=== PATIENT | female | born 1955 | race Caucasian/White ===

== ENCOUNTER 2024-05-20 03:20 | Emergency (ER) | payer MEDICARE ==
[~2024-05-20] VITALS: Ht 160 cm; Wt 87.1 kg
[2024-05-20] MEDS ORDERED: Ondansetron 4 MG SoluTab SL PRN (03:30)
[2024-05-20] MEDS ORDERED: Ondansetron HCl 2 MG / ML 2ML Vial IV PRN (03:30)
[2024-05-20 03:46] LABS: BASOPHILS ABSOLUTE AUTO 0.05 K/mm3 (0.00-0.23); BASOPHILS PERCENT AUTO 0 % (0-2); EOSINOPHILS ABSOLUTE AUTO 0.11 K/mm3 (0.00-0.68); EOSINOPHILS PERCENT AUTO 1 % (0-6); Hematocrit 41.4 % (33.0-51.0); Hemoglobin 14.3 g/dL (11.5-16.0); IMMATURE GRAN ABSOLUTE AUTO 0.05 K/mm3 (0.00-0.10); IMMATURE GRAN PERCENT AUTO 0 % (0-1); LYMPHOCYTES ABSOLUTE AUTO 1.24 K/mm3 (0.84-5.20); LYMPHOCYTES PERCENT AUTO 8 % (21-46); MONOCYTES ABSOLUTE AUTO 1.19 K/mm3 (0.16-1.47); MONOCYTES PERCENT AUTO 8 % (4-13); Mean Corpuscular HGB 30.4 pg (26.0-34.0); Mean Corpuscular HGB Conc 34.5 g/dL (31.5-36.5); Mean Corpuscular Volume 88 fL (80-100); Mean Platelet Volume 10.7 fL (9.1-12.4); NEUTROPHILS ABSOLUTE AUTO 12.66 K/mm3 (1.96-9.15); NEUTROPHILS PERCENT AUTO 83 % (41-73); Platelet Count 320 K/mm3 (150-400); RDW Coefficient Variation 13.1 % (11.7-14.2); RDW Standard Deviation 42.2 fL (35.1-46.3); Red Blood Cell Count 4.71 M/mm3 (3.80-5.20)
[2024-05-20] MEDS ORDERED: Ketorolac Tromethamine 30mg Vial IV ONE (03:55)
[2024-05-20] MEDS ORDERED: NS 1,000 ML IV SCH (03:55)
[2024-05-20] MEDS ORDERED: Dexamethasone Sod Phos 10 MG/ML 1ML VIAL IV ONE (03:55)
[2024-05-20] MEDS ORDERED: Acetaminophen 500 MG Tab PO ONE (03:55)
[2024-05-20] MEDS ORDERED: Sanctura20 MG PO (04:01)
[2024-05-20] MEDS ORDERED: Norvasc5 MG PO (04:02)
[2024-05-20] MEDS ORDERED: MELO7.5 PO (04:03)
[2024-05-20 04:08] LABS: Albumin/Globulin Ratio 1.1 (0.8-1.8); Bilirubin, Total 0.7 mg/dL (0.1-1.0); Bun/Creatinine Ratio 22.5 (12.0-20.0); Calcium, Blood 9.5 mg/dL (8.5-10.1); Creatinine, Blood 0.8 mg/dL (0.40-1.00); Globulin, Blood 3.5 g/dL (2.2-4.0); Potassium, Blood 3.8 mmol/L (3.5-5.5); Total Protein, Blood 7.5 g/dL (6.4-8.2)
[2024-05-20 05:06] LABS: Source, Urine Clean Catch
[2024-05-20 05:26] LABS: Appearance, Urine Hazy (Clear); Bilirubin, Urine Neg (Neg); Blood, Urine 5+ (Neg); Color, Urine Yellow (P-Yellow); Glucose Qualitative, Urine 2+ (Neg); Ketones, Urine 2+ (Neg); Leukocyte Esterase, Urine 1+ (Neg); Nitrite, Urine Pos (Neg); Protein, Urine 1+ (Neg); Urobilinogen, Urine NORM (Normal)
[2024-05-20 05:39] LABS: Bacteria Many /hpf; Red Blood Cells, Urine 0-2 /hpf (0-2); Squamous Epithelial Cells Many /hpf (Few); White Blood Cells, Urine 0-2 /hpf (0-5)
[2024-05-20] MEDS ORDERED: CefTRIAXone Sodium 1,000 MG in NS 100 ML IV ONE (05:55)
[2024-05-20 06:30] VITALS: BP 162/105
[2024-05-20] MEDS ORDERED: OxyCODONE HCL 5 MG TAB PO ONE (07:00)
[2024-05-20] MEDS ORDERED: OXYC5 PO (07:13)
[2024-05-20] MEDS ORDERED: TAMS.4ER PO (07:13)
[2024-05-20 07:23] LABS: Source, Urine Straight Cath
[2024-05-20 07:39] LABS: Appearance, Urine Clear (Clear); Bilirubin, Urine Neg (Neg); Blood, Urine 1+ (Neg); Color, Urine Yellow (P-Yellow); Glucose Qualitative, Urine 4+ (Neg); Ketones, Urine Neg (Neg); Leukocyte Esterase, Urine Neg (Neg); Nitrite, Urine Neg (Neg); Protein, Urine Neg (Neg); Specific Gravity, Urine 1.005 (1.003-1.022); Urobilinogen, Urine NORM (Normal)
[2024-05-20 07:57] LABS: White Blood Cells, Urine 0-2 /hpf (0-5)
[2024-05-20 07:58] LABS: Bacteria Many /hpf; Red Blood Cells, Urine 0-2 /hpf (0-2); Squamous Epithelial Cells Few /hpf (Few)
[2024-05-20] MEDS ORDERED: ONDA4ODT MM (10:46)
== END 2024-05-20 10:01 | disposition home or self-care (01) ==
LOC: ER 03:20
PROVIDERS: Student in an Organized Health Care Education/Training Program
DX: N13.2 Hydronephrosis with renal and ureteral calculous obstruction (principal); Z88.8 Allergy status to other drugs, medicaments and biological substances
CPT/HCPCS: 74176; 80053; 81001; 82947; 83690; 85025; 87077; 87086; 87186; 96361; 96365; 96375; 99284-25; A9270; J0696; J1100; J1885; J2405; J7030; P9612

== ENCOUNTER → 2024-06-09 | Outpatient (CLI) | payer MEDICARE ==
[~2024-06-09] MED LIST: MELO7.5 PO; Norvasc5 MG PO; ONDA4ODT MM; OXYC5 PO; Sanctura20 MG PO; TAMS.4ER PO
== END ==
LOC: LAB 17:23 → LAB SHORT 17:23
DX: N39.0 Urinary tract infection, site not specified (principal); B96.29 Other Escherichia coli [E. coli] as the cause of diseases classified elsewhere; Z16.12 Extended spectrum beta lactamase (ESBL) resistance
CPT/HCPCS: 87086

== ENCOUNTER 2024-07-18 12:34 | Inpatient (IN) | payer MEDICARE ==
[~2024-07-18] VITALS: Ht 157.5 cm; Wt 93.3 kg
[2024-07-18 13:49] LABS: BASOPHILS ABSOLUTE AUTO 0.06 K/mm3 (0.00-0.23); BASOPHILS PERCENT AUTO 1 % (0-2); EOSINOPHILS ABSOLUTE AUTO 0.28 K/mm3 (0.00-0.68); EOSINOPHILS PERCENT AUTO 3 % (0-6); Hematocrit 40.5 % (33.0-51.0); Hemoglobin 13.9 g/dL (11.5-16.0); IMMATURE GRAN ABSOLUTE AUTO 0.02 K/mm3 (0.00-0.10); IMMATURE GRAN PERCENT AUTO 0 % (0-1); LYMPHOCYTES ABSOLUTE AUTO 1.66 K/mm3 (0.84-5.20); LYMPHOCYTES PERCENT AUTO 19 % (21-46); MONOCYTES ABSOLUTE AUTO 0.97 K/mm3 (0.16-1.47); MONOCYTES PERCENT AUTO 11 % (4-13); Mean Corpuscular HGB 30.5 pg (26.0-34.0); Mean Corpuscular HGB Conc 34.3 g/dL (31.5-36.5); Mean Corpuscular Volume 89 fL (80-100); Mean Platelet Volume 10.6 fL (9.1-12.4); NEUTROPHILS ABSOLUTE AUTO 5.65 K/mm3 (1.96-9.15); NEUTROPHILS PERCENT AUTO 66 % (41-73); Platelet Count 282 K/mm3 (150-400); RDW Standard Deviation 42.4 fL (35.1-46.3); Red Blood Cell Count 4.55 M/mm3 (3.80-5.20); White Blood Cell Count 8.64 K/mm3 (4.00-11.30)
[2024-07-18 14:06] LABS: International Normalized Ratio 0.93
[2024-07-18 14:11] LABS: Albumin, Blood 3.7 g/dL (3.4-5.0); Albumin/Globulin Ratio 1.2 (0.8-1.8); Bilirubin, Total 0.9 mg/dL (0.1-1.0); Bun/Creatinine Ratio 27.9 (12.0-20.0); Calcium, Blood 9.1 mg/dL (8.5-10.1); Creatinine, Blood 0.61 mg/dL (0.40-1.00); Globulin, Blood 3.2 g/dL (2.2-4.0); Potassium, Blood 3.5 mmol/L (3.5-5.5); Total Protein, Blood 6.9 g/dL (6.4-8.2)
[2024-07-18] MEDS ORDERED: HYDROmorphone HCl/Pf 1MG SYR IV ONE (16:20)
[2024-07-18] MEDS ORDERED: Labetalol HCL 5 MG/ML 4ML Injection (Single Dose) IV ONE (17:15)
[2024-07-18] MEDS ORDERED: HydrALAZINE HCl 20 MG / ML 1ML Vial IV PRN (17:30)
[2024-07-18] MEDS ORDERED: FLU VACC TS2024-25(6MOS UP)/PF 45 MCG/0.5 ML SYRINGE IM ONE (17:30)
[2024-07-18] MEDS ORDERED: OxyCODONE HCL 5 MG TAB PO PRN (17:35)
[2024-07-18] MEDS ORDERED: AmLODIPine Besylate 5 MG Tab PO SCH (18:00)
[2024-07-18] MEDS ORDERED: Acetaminophen 500 MG Tab PO SCH (18:00)
[2024-07-18] MEDS ORDERED: Lisinopril 20 MG Tab PO SCH (18:00)
[2024-07-18] MEDS ORDERED: GuaiFENesin 600 MG TabCR PO PRN (20:00)
--- NOTE | 2024-07-18 21:10 | NUR ---
NEW ADMIT. PATIENT ADMITTED TO ROOM 309 FROM ER. PATIENT ADMITTED FOR CVA WITH RIGHT SIDED WEAKNESS. PATIENT ARRIVED TO ROOM VIA GURNEY AND 1P TRANSPORT. UPON ARRIVAL PATIENT ABLE TO AMBULATE WITH 1 PERSON ASSIST TO WEAK SIDE AND BACK TO BED. PATIENT ARRIVED TO ROOM WITH 1 PERSONAL BELONGINGS BAG AND HER PURSE. PATIENT SENT HOME HER VALUABLE WITH HER FRIEND. PATIENT ORIENTED TO ROOM AND CALL LIGHT. THIS RN TO ASSUME PATIENT CARE.
[2024-07-18 21:30] VITALS: BP 152/88
[2024-07-18] MEDS ORDERED: ACET500 PO (22:06)
[2024-07-18] MEDS ORDERED: 1/2 NS 250ml250 ML (22:06)
[2024-07-19] VITALS (8 sets, daily range): BP systolic 140–178; BP diastolic 77–102
[2024-07-19] MEDS ORDERED: Acetaminophen 650 MG Supp PR ONE (05:45)
--- NOTE | 2024-07-19 07:54 | NUR ---
SHIFT SUMMARY AT APPROXIMATELY 0500 PATIENT HAD A CHNAGE IN NEUROLOGICAL STATUS AND MUSCULOSKELETAL STATUS. PATIENT SCORING A 9-10 VIA THE NIHSS STROKE SCALE-DR. MART NOTIFIED AND THIS RN ASKED DR. MART TO COME AND SEE PATIENT- ARRIVED TO PATIENTS ROOM AND BASED ON CHANGES TO HER SCORE ORDERED FOR A STAT HEAD CT WO CONTRAST. PATIENT WENT TO IMAGING AND CT COMPLETED THIS MMORNING. DURING EPISODE PATIENT HAD AN INCREASE DIFFICULTY IN FORMING WORDS, FLACCID TO THE RIGHT UPPER EXTREMITY, AND TENSION PAIN T/O BODY. DR. MART ORDERED FOR PATIENT TO AR TYLENOL-WITH IMPROVEMENT TO MUSCLE LIKE SPASMS. PATIENT IS A&OX4 AT BASELINE BUT AT THE TIME OF EPISODE PATIENTS MENTATION DECREASED AND WAS SLOW TO RESPOND AND UNABLE TO ANSWER ALL QUESTIONS. PATIENT HAS PUREWICK IN PLACE AT THIS TIME-URINE IS LIGHT YELLOW IN COLOR. PATIENT REQUESTING FOOD AND DRINK-SPEECH THERAPY IS SCHEDULED TO EVALUATE PATIENT THIS MORNING (07/19/24). PATIENT SYMPTOMS AT THIS TIME HAS APPEARED TO IMPROVE-PATIENT ABLE TO MOVE DIGITS TO RIGHT HAND AND SPEECH IS IMPROVED. PATIENT IS TALKATIVE. BED IS LOCKED IN THE LOWEST POSITION WITH CALL LIGHT IN REACH. REPORT GIVEN TO DAYSHIFT NURSE.
[2024-07-19 08:00] LABS: BASOPHILS ABSOLUTE AUTO 0.07 K/mm3 (0.00-0.23); BASOPHILS PERCENT AUTO 1 % (0-2); EOSINOPHILS ABSOLUTE AUTO 0.24 K/mm3 (0.00-0.68); EOSINOPHILS PERCENT AUTO 3 % (0-6); Hematocrit 40.1 % (33.0-51.0); Hemoglobin 13.7 g/dL (11.5-16.0); IMMATURE GRAN ABSOLUTE AUTO 0.02 K/mm3 (0.00-0.10); IMMATURE GRAN PERCENT AUTO 0 % (0-1); LYMPHOCYTES ABSOLUTE AUTO 1.68 K/mm3 (0.84-5.20); LYMPHOCYTES PERCENT AUTO 20 % (21-46); MONOCYTES ABSOLUTE AUTO 0.84 K/mm3 (0.16-1.47); MONOCYTES PERCENT AUTO 10 % (4-13); Mean Corpuscular HGB 30.6 pg (26.0-34.0); Mean Corpuscular HGB Conc 34.2 g/dL (31.5-36.5); Mean Corpuscular Volume 90 fL (80-100); Mean Platelet Volume 10.7 fL (9.1-12.4); NEUTROPHILS ABSOLUTE AUTO 5.74 K/mm3 (1.96-9.15); NEUTROPHILS PERCENT AUTO 67 % (41-73); Platelet Count 252 K/mm3 (150-400); RDW Coefficient Variation 13.1 % (11.7-14.2); RDW Standard Deviation 42.6 fL (35.1-46.3); Red Blood Cell Count 4.47 M/mm3 (3.80-5.20); White Blood Cell Count 8.59 K/mm3 (4.00-11.30)
[2024-07-19 08:28] LABS: Albumin, Blood 3.5 g/dL (3.4-5.0); Albumin/Globulin Ratio 1.1 (0.8-1.8); Bilirubin, Total 0.9 mg/dL (0.1-1.0); Bun/Creatinine Ratio 15.7 (12.0-20.0); Creatinine, Blood 0.57 mg/dL (0.40-1.00); Globulin, Blood 3.1 g/dL (2.2-4.0); Phosphorus, Blood 2.7 mg/dL (2.5-4.9); Potassium, Blood 3.2 mmol/L (3.5-5.5); Total Protein, Blood 6.6 g/dL (6.4-8.2)
[2024-07-19] MEDS ORDERED: Enoxaparin 40 MG/0.4 ML SYR SC SCH (09:00)
[2024-07-19] MEDS ORDERED: Atorvastatin 40 MG Tab PO SCH (09:00)
[2024-07-19] MEDS ORDERED: Metoprolol Succinate 50 MG TABCR PO SCH (09:00)
[2024-07-19] MEDS ORDERED: Potassium Chloride 40 MEQ in NS 250 ML IV ONE (16:30)
[2024-07-19] MEDS ORDERED: AmLODIPine Besylate 5 MG Tab PO ONE (16:35)
[2024-07-19] MEDS ORDERED: OxyCODONE HCL 5 MG TAB PO PRN (16:40)
[2024-07-19] MEDS ORDERED: Potassium Chloride 20 MEQ/15 ML UDC PO ONE (18:00)
--- NOTE | 2024-07-19 19:23 | NUR ---
PT ALERT AND ORIENTED X4, VSS WITH ONE EPISODE OF BP 178/102, WITH INCREASE IN RIGHT SIDED WEAKNESS AND SLURRED SPEACH, NIHSS 14. NOTIFIED, AMLODAPINE GIVEN PER ORDER. PT RETURNED TO THE NEUROLOGICAL STATE THAT SHE WAS IN THIS MORNING NIHSS OF 10. WORKED WITH OT/ST, DIET ORDERED. 2 PA TO BSC, CONT/INCONT, ABLE TO TELL WHEN SHE URINATES. EDUCATION PROVIDED, REPEAT CT PLANNED FOR TOMORROW AM.
[2024-07-20 03:42] VITALS: BP 162/102
--- NOTE | 2024-07-20 04:42 | NUR ---
SHIFT SUMMARY. PATIENT IS A&OX4 PATIENT ABLE TO MOVE THUMB AND 1 DIGIT TO RIGHT HAND. PATIENT ABLE TO MAKE HER NEEDS KNOWN. PATIENT REQUESTING FOR SOME MELATONIN TO AID WITH SLEEP. PATIENT REPORTS SOME DIFFICULTY WITH PROCESSING THE CHANGE FROM THE STROKE. PATIENT SLEPT FOR 5 HOURS LAST NIGHT WITH RESPIRATIONS EQUAL AND UNLABORED. BED IS LOCKED IN THE LOWEST POSITION WITH CALL LIGHT IN REACH. CARE IS ONGOING.
[2024-07-20 05:21] LABS: Albumin, Blood 3.4 g/dL (3.4-5.0); Anion Gap 9 mmol/L (3-11); Blood Urea Nitrogen 14 mg/dL (8-24); Bun/Creatinine Ratio 18.7 (12.0-20.0); CO2, Blood 26 mmol/L (21-32); Calcium, Blood 9.2 mg/dL (8.5-10.1); Chloride, Blood 109 mmol/L (98-108); Creatinine, Blood 0.75 mg/dL (0.40-1.00); Glomerular Filtration Rate 88 (60-); Glucose, Blood 163 mg/dL (70-99); Phosphorus, Blood 3.1 mg/dL (2.5-4.9); Potassium, Blood 3.8 mmol/L (3.5-5.5); Sodium, Blood 140 mmol/L (136-145)
[2024-07-20 07:29] VITALS: BP 171/86
[2024-07-20 13:41] LABS: Source, Urine Clean Catch
[2024-07-20 13:51] LABS: Bilirubin, Urine Neg (Neg); Blood, Urine Neg (Neg); Color, Urine Yellow (P-Yellow); Glucose Qualitative, Urine Neg (Neg); Ketones, Urine 2+ (Neg); Leukocyte Esterase, Urine Neg (Neg); Nitrite, Urine Neg (Neg); Protein, Urine 1+ (Neg); Urobilinogen, Urine NORM (Normal)
[2024-07-20 14:03] LABS: Appearance, Urine Hazy (Clear); Bacteria Many /hpf; Red Blood Cells, Urine 0-2 /hpf (0-2); Squamous Epithelial Cells Mod /hpf (Few); White Blood Cells, Urine 0-2 /hpf (0-5)
[2024-07-20 14:04] LABS: Mucus Light (0-Heavy)
[2024-07-20 15:36] VITALS: BP 148/91
--- NOTE | 2024-07-20 16:56 | NUR ---
SUMMARY- PT A/O X4, VERBAL AND COMMUNACATIVE. SPEECH SLIGHT SLUR, R FACIAL DROOP, R ARM FLACID, ABLE TO SLIGHTLY WIGGLE THUMB. WORKED WITH PT/OT TODAY. WAS ABLE TO AMBULATE WITH A WALKER/GAIT BELT SBA ABOUT 50FT. PLAN IS FOR PT TO GO TO [facility] TOMORROW 07/21. PT TOLERATING FOOD AND FLUID. CONTINENT OF VOID, STATES BURNING UPON URINATION; SENT [facility]A. PT HAD 3 RINGS ONE ON R AND 2 ON LEFT HAND. RN ABLE TO REMOVE ALL RINGS; HANDED BACK TO PT FOR SAFE KEEPING- WILL REPORT TO NOC RN
[2024-07-20 20:00] VITALS: BP 126/81
[2024-07-20] MEDS ORDERED: Melatonin 5 MG Tablet PO SCH (21:00)
[2024-07-21] MEDS ORDERED: Zolpidem Tartrate 5 MG Tab PO ONE (01:00)
--- NOTE | 2024-07-21 01:01 | NUR ---
NEW T-ORDER OF PO AMBIEN 5MG QHS PRN RECEIVED FROM THE ON-CALL HOSPITALIST . ENTERED TO [employer], SEE EMAR. NO ADDITIONAL NEW ORDERS AT THIS TIME.
[2024-07-21] MEDS ORDERED: Zolpidem Tartrate 5 MG Tab PO PRN (01:05)
--- NOTE | 2024-07-21 04:14 | NUR ---
SHIFT SUMMARY PT IS A/O X4, ABLE TO MAKE HER NEEDS KNOWN AND SOMEWHAT COOPERATIVE WITH CARE. PT IS REMINDED MULTIPLE TIMES OF THE FALL PRECAUTIONS. PT TRANSFERRING HERSELF FROM THE CHAIR TO THE COMMODE. CHAIR AND BED ALARMS IN PLACE. PT EAGER TO DO HER OWN ADL'S W/O ASSISTANCE. PT WEARING PULLUPS. PT REPORTS NO SLEEP FOR THREE DAYS, AND REPORTS HAS TAKEN AMBIEN IN THE PAST WITH GOOD EFFECTIVNESS. NEW ORDER FOR AMBIEN 5MG QHS RECEIVED FROM THE ON-CALL HOSPITALIST. PT GETTING REST DURING AM HRS, RR EVEN, UNLABORED. HS OXYCODONE ADMINISTERED ORDERED FOR C/O 02/22 SPINAL PAIN. PRN MELATONIN AT HS NOT EFFECTIVE. NO ACUTE EVENTS DURING THIS SHIFT. PT HAS A LEFT SIDED FACIAL DROOP AND LEFT SIDE DEFICIT IN UE AND LE. SLURRED SPEECH. BED AT THE LOWEST POSITION, CALL LIGHT W/I REACH.
[2024-07-21 05:15] VITALS: BP 132/58
[2024-07-21 05:18] LABS: BASOPHILS ABSOLUTE AUTO 0.05 K/mm3 (0.00-0.23); BASOPHILS PERCENT AUTO 1 % (0-2); EOSINOPHILS ABSOLUTE AUTO 0.26 K/mm3 (0.00-0.68); EOSINOPHILS PERCENT AUTO 4 % (0-6); Hematocrit 39.4 % (33.0-51.0); Hemoglobin 13.1 g/dL (11.5-16.0); IMMATURE GRAN ABSOLUTE AUTO 0.01 K/mm3 (0.00-0.10); IMMATURE GRAN PERCENT AUTO 0 % (0-1); LYMPHOCYTES ABSOLUTE AUTO 2.14 K/mm3 (0.84-5.20); LYMPHOCYTES PERCENT AUTO 29 % (21-46); MONOCYTES ABSOLUTE AUTO 1.14 K/mm3 (0.16-1.47); MONOCYTES PERCENT AUTO 16 % (4-13); Mean Corpuscular HGB 30.5 pg (26.0-34.0); Mean Corpuscular HGB Conc 33.2 g/dL (31.5-36.5); Mean Corpuscular Volume 92 fL (80-100); Mean Platelet Volume 10.4 fL (9.1-12.4); NEUTROPHILS ABSOLUTE AUTO 3.74 K/mm3 (1.96-9.15); NEUTROPHILS PERCENT AUTO 51 % (41-73); Platelet Count 282 K/mm3 (150-400); RDW Coefficient Variation 13.2 % (11.7-14.2); RDW Standard Deviation 44.1 fL (35.1-46.3); Red Blood Cell Count 4.29 M/mm3 (3.80-5.20); White Blood Cell Count 7.34 K/mm3 (4.00-11.30)
[2024-07-21 05:43] LABS: Albumin, Blood 3.3 g/dL (3.4-5.0); Anion Gap 8 mmol/L (3-11); Blood Urea Nitrogen 17 mg/dL (8-24); Bun/Creatinine Ratio 23.2 (12.0-20.0); CO2, Blood 28 mmol/L (21-32); Calcium, Blood 8.9 mg/dL (8.5-10.1); Chloride, Blood 108 mmol/L (98-108); Creatinine, Blood 0.73 mg/dL (0.40-1.00); Glomerular Filtration Rate 91 (60-); Glucose, Blood 134 mg/dL (70-99); Phosphorus, Blood 2.9 mg/dL (2.5-4.9); Potassium, Blood 4.1 mmol/L (3.5-5.5); Sodium, Blood 140 mmol/L (136-145)
[2024-07-21 07:30] VITALS: BP 139/78
[2024-07-21] MEDS ORDERED: AMLO5 PO (10:26)
[2024-07-21] MEDS ORDERED: ATOR40TA PO (10:26)
[2024-07-21] MEDS ORDERED: MELATONIN5 M1 PO (10:27)
[2024-07-21] MEDS ORDERED: GUAI600T33 PO (10:27)
[2024-07-21] MEDS ORDERED: TOPROL XL25 MG PO (10:27)
[2024-07-21] MEDS ORDERED: LISI20 PO (10:27)
[2024-07-21] MEDS ORDERED: TRAZ50 PO (10:28)
[2024-07-21] MEDS ORDERED: MECL25 PO (12:03)
--- NOTE | 2024-07-21 13:32 | NUR ---
PT DISCHARGED TO [facility], WHEELCHAIR TRANSFER [id number]. 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 3 ALBERT RN ASSISTED PT GETTING OFF 2/5 PT STATES SHE SENT HOME WITH HER FRIEND THAT WAS HERE YESTERDAY. CALLED REPORT TO ASHLIE AT [facility] [id number].
== END 2024-07-21 13:01 | DRG 65 ==
LOC: ER 12:34 → ERHOLD 17:26 → MEDS 17:26
PROVIDERS: Student in an Organized Health Care Education/Training Program; ADMIT Family Medicine
DX: I63.9 Cerebral infarction, unspecified (principal); I16.1 Hypertensive emergency; I69.851 Hemiplegia and hemiparesis following other cerebrovascular disease affecting right dominant side; E66.3 Overweight; R29.708 NIHSS score 8; D32.0 Benign neoplasm of cerebral meninges; E78.5 Hyperlipidemia, unspecified; R29.810 Facial weakness; R47.1 Dysarthria and anarthria; M54.9 Dorsalgia, unspecified; G89.29 Other chronic pain; M79.7 Fibromyalgia; G43.909 Migraine, unspecified, not intractable, without status migrainosus; M50.30 Other cervical disc degeneration, unspecified cervical region; Z88.8 Allergy status to other drugs, medicaments and biological substances; Z98.1 Arthrodesis status; Z90.710 Acquired absence of both cervix and uterus; Z88.2 Allergy status to sulfonamides; Z79.899 Other long term (current) drug therapy; Z98.890 Other specified postprocedural states; Z96.82 Presence of neurostimulator; Z68.33 Body mass index [BMI] 33.0-33.9, adult
CPT/HCPCS: 36415; 70450; 70496; 70498; 80053; 80069; 81001; 82947; 83735; 84100; 85025; 85610; 85730; 87086; 92610; 93005; 93010; 96374; 96375; 97112; 97116; 97162; 97165; 97530; 97535; 99285-25; A9270; J1171; J1650; J3480; J7050; Q9967